=== PATIENT | male | born 1975 | race Caucasian/White ===

== ENCOUNTER 2020-02-27 11:04 | Outpatient (CLI) | payer OTHER, SELFPAY ==
[2020-02-27 11:48] LABS: Basophils Absolute Auto 0.1 K/mm3 (0.0-0.1); Eosinophils Absolute Auto 0.3 K/mm3 (0-0.3); Eosinophils Percent Auto 4.7 % (0-4.4); Hematocrit 42.3 % (42.0-52.0); Hemoglobin 14.2 g/dL (14.0-18.0); Immature Granulocyte Absolute 0.02 K/mm3 (0.00-0.031); Immature Granulocyte Percent A 0.3 % (0-0.5); Lymphocytes Absolute Auto 1.34 K/mm3 (0.9-3.2); Lymphocytes Percent Auto 21.5 % (18.3-44.2); Mean Corpuscular HGB Conc 33.6 g/dl (32-36); Mean Corpuscular Hemoglobin 27.7 pg (26-34); Mean Corpuscular Volume 82.5 fl (80-100); Mean Platelet Volume 10.1 fl (7.4-10.4); Monocytes Absolute Auto 0.5 K/mm3 (0.1-0.6); Monocytes Percent Auto 8.3 % (2.6-8.5); Neutrophils Percent Auto 64.2 % (45.5-73.1); Platelet Count Result 299 k/mm3 (150-375); Red Blood Count 5.13 M/mm3 (4.6-6.20); White Blood Count 6.2 K/mm3 (4.5-10.0)
[2020-02-27 12:08] LABS: Blood Urea Nitrogen 21 mg/dL (9-20); Calcium 8.5 mg/dL (8.4-10.2); Carbon Dioxide 28 mmol/L (22-30); Chloride 98 mmol/L (98-107); Estimated Glomerular Filt Rate > 60; Glucose 92 mg/dL (75-110); Magnesium 1.9 mg/dL (1.6-2.3); Potassium 4.3 mmol/L (3.4-5.0); Sodium 136 mmol/L (137-145)
== END 2020-02-27 11:05 | disposition home or self-care (01) ==
LOC: ANHLAB 11:06
PROVIDERS: PCP Student in an Organized Health Care Education/Training Program; Visit Provider Specialist
DX: I50.9 Heart failure, unspecified (principal); Z79.899 Other long term (current) drug therapy
CPT/HCPCS: 36415; 80048; 83735; 85025

== ENCOUNTER 2021-12-10 20:28 | Emergency (ER) | payer OTHER, SELFPAY ==
[2021-12-10] VITALS (28 sets, daily range): BP systolic 83–119; BP diastolic 58–98; PULSE 73–167; RESP 10–17; TEMP 36.7; O2SAT 94–100
--- NOTE | ~2021-12-10 | XR_ITS ---
XR chest 2V DATE: 12/10/2021 21:00 INDICATION: Shocked by pacemaker/defibrillator tonight. History of heart disease. TECHNIQUE: AP and lateral views COMPARISON: 10/20/2018 PA and lateral chest FINDINGS: Left-sided defibrillator/triple lead pacemaker device with leads overlying right atrium, ri ght ventricle and coronary sinus. Cardiomegaly. No pulmonary vascular congestion or pleural effusion or pneumothorax is evident. The subpleural and p ulmonary interstitial edema of 10/20/2018 is not present today. Included skeletal structures are unremarkable. IMPRESSION: Cardiomegaly Triple lead defibrillator/pacemaker device No active pulmonary disease or congestive change Reviewed, dictated and finalized at location A.
--- NOTE | 2021-12-10 20:30 | ECG_ITS ---
Measurements Intervals [place] Rate: 73 P: 147 TN: 166 QRS: 36 QRSD: 173 T: 229 QT: 467 QTc: 515 Interpretive Statements ELECTRONIC ATRIAL PACEMAKER ELECTRONIC VENTRICULAR PACEMAKER PREMATURE VENTRICULAR COMPLEX ATYPICAL ECG NO PREVIOUS ECG AVAILABLE FOR COMPARISON Electronically Signed On 12-11-2021 12:33:50 CDT by He Erazo M.D.
--- NOTE | 2021-12-10 20:36 | ED.GENADULT ---
HPI - General Adult General Chief complaint: Unspecified <Karen Pitts PA-C - Last Filed: 12/11/21 01:58> Stated complaint: electrical shock <Karen Pitts PA-C - Last Filed: 12/11/21 01:58> Time Seen by Provider: 12/10/21 20:33 <Karen Pitts PA-C - Last Filed: 12/11/21 01:58> Source: patient <STANTON Jeffers Last Filed: 12/11/21 01:58> Mode of arrival: ambulatory <STANTON Jeffers Last Filed: 12/11/21 01:58> Limitations: no limitations <Karen Pitts PA-C - Last Filed: 12/11/21 01:58> History of Present Illness HPI narrative: Patient is a 46-year-old male, with a Hx of HCOM, CHF, and dual pacemaker-defibrillator, who presents the ED with report of his defibrillator firing. Patient reports he has been feeling fairly well the past couple days, but has had intermittent episodes of anxiousness. He worked a 12-hour day today and came home and ate dinner with his . He believes he ate too fast or too much, and felt bloated in his abdomen afterwards. He then sat down to watch a movie and began feeling short of breath. He states that he then became anxious about this and checked his blood pressure to be 117/80s at that time. He was attempting to check his pulse ox when his defibrillator fired once. He then presented to the ED. Patient denied having any chest pain at that time. He states he feels fine currently and denies any shortness of breath in the ED bed. No nausea, vomiting, or other pain. Patient's bow maker is Dr. Maddox at [place], [place]. <STANTON Jeffers Last Filed: 12/11/21 01:58> Related Data Home medications: Home Medications Medication Instructions Recorded Confirmed atorvastatin 80 mg PO HS 12/10/21 12/10/21 famotidine 20 mg PO DAILY 12/10/21 12/10/21 hydroxyzine HCl 25 mg PO TID PRN 12/10/21 12/10/21 potassium chloride 20 meq PO DAILY 12/10/21 12/10/21 sacubitril-valsartan [Entresto] 1 tablet PO BID 12/10/21 12/10/21 sertraline 50 mg PO DAILY 12/10/21 12/10/21 warfarin 2.5 mg PO DAILY 12/10/21 12/10/21 <Karen Pitts PA-C - Last Filed: 12/11/21 01:58> Allergies/adverse reactions: Allergies Allergy/AdvReac Type Severity Reaction Status Date / Time No Known Allergies Allergy Verified 12/10/21 20:30 <Karen Pitts PA-C - Last Filed: 12/11/21 01:58> Review of Systems Review of Systems: CONSTITUTIONAL: Denies fever, chills, or sweats. CARDIOVASCULAR: Denies chest pain. RESPIRATORY: Reports shortness of breath. Denies cough. GASTROINTESTINAL: Reports abdominal bloating. Denies abdominal pain, nausea, vomiting, or diarrhea. NEUROLOGIC: Denies headache, numbness, or weakness. PSYCHIATRIC: Reports anxiety. <Karen Pitts PA-C - Last Filed: 12/11/21 01:58> All systems reviewed & are unremarkable except as noted in HPI and below <Karen Pitts PA-C - Last Filed: 12/11/21 01:58> PMFSH Past Medical History Medical History: Medical History (Updated 12/10/21 @ 23:56 by Karen Pitts PA-C) Cardiac defibrillator in place Congestive heart failure Hypertrophic cardiomyopathy Pacemaker Presence of combination internal cardiac defibrillator (ICD) and pacemaker <Karen Pitts PA-C - Last Filed: 12/11/21 01:58> Social History Social History: Social History Smoking status: Never smoker <Karen Pitts PA-C - Last Filed: 12/11/21 01:58> Exam Narrative: GENERAL:Well-nourished, non-toxic, in no acute distress. HEAD: Normocephalic, atraumatic. NECK: Supple. No adenopathy, no masses. RESPIRATORY: Airway patent, respirations nonlabored. Clear to auscultation bilaterally, no rales, rhonchi, wheezing. CARDIOVASCULAR: Regular rate with paced sinus rhythm without murmurs, rubs, or gallops. Peripheral pulses 2+ and equal bilaterally. ABDOMINAL: Soft, nontender, nondistended, no hepatosplenomegaly. Normoactive BS. MUSCULOSKELETAL: Moves all extremities. Str
[2021-12-10] MEDS: ASPIRIN 81 MG CHEWABLE TABLET 324 MG PO (20:48)
[2021-12-10 20:50] LABS: Basophils Absolute Auto 0.1 K/mm3 (0.0-0.1); Basophils Percent Auto 0.7 % (0.2-1.2); Eosinophils Absolute Auto 0.2 K/mm3 (0-0.3); Eosinophils Percent Auto 2.4 % (0-4.4); Hematocrit 48.1 % (42.0-52.0); Hemoglobin 15.7 g/dL (14.0-18.0); Immature Granulocyte Absolute 0.02 K/mm3 (0.00-0.031); Immature Granulocyte Percent A 0.2 % (0-0.5); Lymphocytes Percent Auto 31.8 % (18.3-44.2); Mean Corpuscular HGB Conc 32.6 g/dl (32-36); Mean Corpuscular Hemoglobin 28.2 pg (26-34); Mean Corpuscular Volume 86.4 fl (80-100); Mean Platelet Volume 10.6 fl (7.4-10.4); Monocytes Absolute Auto 0.7 K/mm3 (0.1-0.6); Monocytes Percent Auto 7.3 % (2.6-8.5); Neutrophils Absolute Auto 5.4 K/mm3 (1.3-6.7); Neutrophils Percent Auto 57.6 % (45.5-73.1); Platelet Count Result 356 k/mm3 (150-375); Red Blood Count 5.57 M/mm3 (4.6-6.20); Red Cell Distribution Width 12.8 % (11.5-14.5); White Blood Count 9.4 K/mm3 (4.5-10.0)
[2021-12-10 20:58] LABS: Alanine Aminotransferase 31 U/L (4-50); Alkaline Phosphatase 129 U/L (38-126); Anion Gap 12 mmol/L (8-16); Aspartate Amino Transferase 44 U/L (17-59); Blood Urea Nitrogen 20 mg/dL (9-20); Calcium 9.1 mg/dL (8.4-10.2); Carbon Dioxide 31 mmol/L (22-30); Chloride 96 mmol/L (98-107); Estimated CRCL calculation 65 ml/min; Estimated Glomerular Filt Rate 60; Glucose 72 mg/dL (65-110); Lipase 104 U/L (23-300); Potassium 3.1 mmol/L (3.4-5.0); Sodium 139 mmol/L (137-145)
[2021-12-10 20:59] LABS: INR 1.7
[2021-12-10 21:00] LABS: Partial Thromboplastin Time 33.3 SECONDS (22.3-36.8)
--- NOTE | 2021-12-10 21:21 | PC.NURSE ---
This RN is in room with patient using the [employer] freight on patients defibrillator device.
[2021-12-10 21:44] LABS: NT Pro B Type Natriuretic Pept 1960 pg/mL (5-100)
--- NOTE | 2021-12-10 21:54 | ECG_ITS ---
Measurements Intervals [place] Rate: 165 P: -79 NM: 64 QRS: 243 QRSD: 174 T: 84 QT: 310 QTc: 515 Interpretive Statements VENTRICULAR TACHYCARDIA WITH RIGHT BUNDLE BRANCH BLOCK MORPHOLOGY ABNORMAL ECG Electronically Signed On 12-11-2021 12:35:20 CDT by He Erazo M.D.
[2021-12-10] MEDS: AMIODARONE 150 MG/D5W 100 ML 150 MG/100 ML BAG 600 MG IV CONT ×2 (22:16→22:39)
[2021-12-10] MEDS: AMIODARONE 360 MG/D5W 200 ML 360 MG/200 ML BAG 33.33 MG IV CONT (22:25)
--- NOTE | 2021-12-10 22:45 | PC.NURSE ---
Pt started running V-Tach and his heart rate was in the upper 160's. Patient said he did not feel any different and he was used to feeling this way. VANIA Hinds and PA in room at this time. Patient was ordered amiodarone to try and help reverse this. Patient's pulse started to slowly go down and at this time his pulse is 154. Patient at the time of first V-Tach lead and being in the 160's was put on the crash cart leads and started going down.
[2021-12-10] MEDS: POTASSIUM CHLORIDE INJ 40 MEQ in SODIUM CHLORIDE 0.9% IV 500 ML 130 MEQ IVPB (23:03)
[2021-12-10] MEDS: PROPOFOL IV EMULSION 200 MG/20 ML VIAL 60 MG IV PUSH (23:08)
[2021-12-10] MEDS: PROPOFOL IV EMULSION 200 MG/20 ML VIAL 40 MG IV PUSH (23:11)
--- NOTE | 2021-12-10 23:16 | PC.NURSE ---
Patient given 60mg propofol IV at 2308. Patient synchronize cardioverted at 2310 @ 100J without change to patient's heart rate or rhythm. Second attempt at synchronize cardioversion at 2313 @ 100J, without change to patient's heart rate or rhythm. Third attempt at synchronized cardioversion, increased Joules to 200J. 40mg Propofol given IV at 2311. Patient synchronized cardioverted at 200J at 2314 without change to patient's heart rate or rhythm.
[2021-12-10] MEDS: SODIUM CHLORIDE 0.9% IV 1,000 ML 999 ML IV CONT (23:29)
--- NOTE | 2021-12-10 23:49 | PC.NURSE ---
Verbal consent for Cardioversion from patient to VANIA Martin. This was an emergent situation so no written consent was obtained. Charge nurse Ivelisse aware of situation and states we do not have to get written consent since the patient gave verbal consent to EDJoe Martin
[2021-12-11] VITALS: PULSE 155; RESP 10; O2SAT 99
[2021-12-11 00:15] VITALS: PULSE 159; RESP 14
--- NOTE | 2021-12-11 00:41 | PC.NURSE ---
Patient sent to [facility] with Normal Saline, Amiodarone and Potassium. Patient was flown out by helicopter. left with patient and took all belongings.
[2021-12-11 00:43] VITALS: BP 88/66; PULSE 155; RESP 12; O2SAT 100
== END 2021-12-11 00:45 | disposition short-term general hospital (02) ==
PROVIDERS: Emergency Medicine; Physician Assistant; Emergency Provider Emergency Medicine; PCP Student in an Organized Health Care Education/Training Program
DX: I47.2 Ventricular tachycardia (principal); I50.9 Heart failure, unspecified; Z95.810 Presence of automatic (implantable) cardiac defibrillator; I42.2 Other hypertrophic cardiomyopathy; I45.10 Unspecified right bundle-branch block; I51.7 Cardiomegaly
CPT/HCPCS: 36415; 71046; 80053; 83690; 83880; 84484; 85025; 85610; 85730; 92960; 93005; 96365; 96367; 96375; 99285; A9270; J0282; J2704; J3480; J7030; J7040

== ENCOUNTER 2023-02-12 18:00 | Outpatient (RCR) | payer OTHER, SELFPAY ==
[2022-10-24 15:47] VITALS: PULSE 60
== END 2023-02-13 10:40 | disposition home or self-care (01) ==
LOC: ANHCPREHAB 18:00
PROVIDERS: PCP Student in an Organized Health Care Education/Training Program; Visit Provider Specialist
DX: I50.89 Other heart failure (principal)
CPT/HCPCS: 93798

== ENCOUNTER 2025-07-22 11:15 | Outpatient (RCR) | payer OTHER, SELFPAY | END 2025-07-22 15:36 | disposition home or self-care (01) | LOC: ANHCPREHAB 11:15 | PROVIDERS: PCP Student in an Organized Health Care Education/Training Program; Visit Provider Student in an Organized Health Care Education/Training Program | DX: I50.89 Other heart failure (principal) | CPT/HCPCS: 93798 ==